=== PATIENT | male | born 1960 | race African-American/Black ===

== ENCOUNTER 2020-10-12 09:12 | Emergency (ER) | payer OTHER ==
[~2020-10-12] VITALS: Ht 170.2 cm; Wt 73.9 kg
--- NOTE | ~2020-10-12 | EKG ---
[place] [address] [address] [address] [facility] 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
[2020-10-12 09:48] LABS: ABSOLUTE NEUTROPHILS 8.3 thou/uL (1.4-8.2); BASOPHILS 0.5 % (0.0-2.0); EOSINOPHILS 0.1 % (0.0-3.0); HEMATOCRIT 47.1 % (42.0-52.0); HEMOGLOBIN 15.3 gm/dL (14.0-18.0); LYMPHOCYTES 12.9 % (24.0-44.0); MCH 26.7 pg (26.0-34.0); MCHC 32.5 g/dL (28.0-37.0); MONOCYTES 7.3 % (1.0-8.0); PLATELET COUNT 264 thou/uL (150-400); POLYS 79.2 % (36.0-66.0); RBC 5.74 mil/uL (4.50-6.00); RDW 15.2 % (10.5-14.5); WBC 10.5 thou/uL (4.0-11.0)
[2020-10-12 10:01] LABS: ANION GAP 10 mmol/L (7-16); BUN 14 mg/dL (7-18); CALCIUM 9.9 mg/dL (8.5-10.1); CHLORIDE 104 mmol/L (98-107); CO2 26 mmol/L (21-32); CREATININE 1.1 mg/dL (0.7-1.3); GLUCOSE 107 mg/dL (74-106); SODIUM 140 mmol/L (136-145)
[2020-10-12 10:06] LABS: POTASSIUM 4.1 mmol/L (3.5-5.1)
[2020-10-12 10:07] LABS: TROPONIN-I <0.06 ng/mL (<0.06)
[2020-10-12] MEDS ORDERED: HYDROCHLOROTHIA25 M2 PO (11:33)
[2020-10-12] MEDS ORDERED: VENTOLIN HFA 1818 GM INH (14:12)
[2020-10-12] MEDS ORDERED: PREDNISONE 20 M20 MG PO (14:12)
[2020-10-12] MEDS ORDERED: PROMETH-CODEIN 65 ML PO (14:12)
[2020-10-12] MEDS ORDERED: DOXYCYCLINE 10100 MG PO (14:12)
--- NOTE | 2020-10-12 14:19 | EKG ---
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 : 1960 Requested By: Nahum Khan Order Number: [id number] MD: Varun Rojas Measurements Intervals [place] Rate: 86 P: 22 ND: 144 QRS: 3 QRSD: 106 T: 111 QT: 352 QTc: 421 Interpretive Statements Sinus rhythm Multiform ventricular premature complexes Left atrial enlargement LVH with secondary repolarization abnormality Anterior ST elevation, probably due to LVH No previous ECG available for comparison Electronically Signed On 10-12-2020 14:18:57 MOTORBOAT MECHANIC INBOARD/OUTBOARD by Varun Rojas [email or web address] <ELECTRONICALLY SIGNED> By: Varun Rojas MD, [facility] 10/12/20 1418 [id number] [id number] Varun Rojas MD, FACC /EPI
[2020-10-12 15:00] VITALS: BP 152/64
--- NOTE | 2020-10-13 07:18 | EKG ---
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 : 1960 Requested By: Nahum Khan Order Number: [id number] MD: Varun Rojas Measurements Intervals [place] Rate: 104 P: 35 [place]: 146 QRS: 28 QRSD: 102 T: 82 QT: 326 QTc: 429 Interpretive Statements Sinus tachycardia LAE, consider biatrial enlargement LVH with secondary repolarization abnormality J Point elevation, probably due to LVH No previous ECG available for comparison Electronically Signed On 10-13-2020 7:18:12 VINER OPERATOR by Varun Rojas [email or web address] <ELECTRONICALLY SIGNED> By: Varun Rojas MD, [facility] 10/13/20717 2 2 Varun Rojas MD, FACC /EPI
--- NOTE | 2020-10-13 12:17 | EKG ---
[place] [address] [facility] [place] [address] ELECTROCARDIOGRAM REPORT Name: EDGARD MONTE RICHARD Room #: [facility]P [facility]#: [id number] Admission: 10/12/20 Attend Phys: Discharge: 10/12/20 Date of : 56 Report #: [id number] [facility] ED Test Date: 2020-10-12 Test Time: 13:33:42 Pat Name: EDGARD MONTE Department: Room: Gender: M Observer Electrical Prospecting: Ashvin Gentile : 1960 Requested By: Nahum Khan Order Number: [id number] MD: Varun Rojas Measurements Intervals [place] Rate: 80 P: 22 MD: 144 QRS: 4 QRSD: 106 T: 86 QT: 337 QTc: 389 Interpretive Statements Sinus rhythm Multiform ventricular premature complexes Left atrial enlargement LVH with secondary repolarization abnormality J Point elevation, probably due to LVH Compared to ECG 10/12/2020 12:58:11 No significant changes Electronically Signed On 10-13-2020 12:17:20 RESISTANCE WELDING MACHINE OPERATOR by Varun Rojas [email or web address] <ELECTRONICALLY SIGNED> By: Varun Rojas MD, [facility] 10/13/20 1217 1333 1333 Varun Rojas MD, FAC /EPI
== END 2020-10-12 15:18 | disposition home or self-care (01) ==
LOC: ER 09:12
PROVIDERS: Emergency Medicine
DX: R07.89 Other chest pain (principal); Z20.828 Contact with and (suspected) exposure to other viral communicable diseases; J44.9 Chronic obstructive pulmonary disease, unspecified; F17.210 Nicotine dependence, cigarettes, uncomplicated; Z88.6 Allergy status to analgesic agent; Z88.8 Allergy status to other drugs, medicaments and biological substances; Z79.899 Other long term (current) drug therapy